=== PATIENT | male | born 1950 | race Caucasian/White ===

== ENCOUNTER 2020-08-31 12:11 | Emergency (ER) | payer MEDICARE, OTHER ==
[~2020-08-31] VITALS: Ht 165.1 cm; Wt 91.8 kg
[2020-08-31 12:16] VITALS: BP 134/79
[2020-08-31] MEDS ORDERED: LIDOcaine 1% W/epiNEPHrine 1:200,000 10ml vial IJ ONE ×2 (12:40→14:25)
[2020-08-31] MEDS ORDERED: TETanus/Pertussis (Acell)/Diphther VAC/PF (Tdap-Adult) 0.5ml syringe IMVAC ONE (12:40)
[2020-08-31] MEDS ORDERED: morphine 4 MG/ML inj SYRINge IV ONE (14:25)
[2020-08-31] MEDS ORDERED: ceFAZolin 1gm IM kit IM ONE (14:25)
[2020-08-31] MEDS ORDERED: ondansetron/PF 4mg/2ml inj IV ONE (14:25)
[2020-08-31] MEDS ORDERED: CEPH-585 PO (15:18)
== END 2020-08-31 15:54 | disposition home or self-care (01) ==
LOC: ER 12:11
DX: S81.812A Laceration without foreign body, left lower leg, initial encounter (principal); E11.9 Type 2 diabetes mellitus without complications; Z79.2 Long term (current) use of antibiotics; Z72.89 Other problems related to lifestyle; W45.8XXA Other foreign body or object entering through skin, initial encounter; Y93.89 Activity, other specified; Y92.89 Other specified places as the place of occurrence of the external cause; Y99.8 Other external cause status
CPT/HCPCS: 12032; 90471; 90715; 99284